=== PATIENT | male | born 1975 | race Caucasian/White ===

== ENCOUNTER 2023-01-27 10:15 | Emergency (ER) | payer OTHER, SELFPAY ==
[2023-01-27 10:25] VITALS: BP 112/65; PULSE 93; RESP 20; TEMP 36.9; O2SAT 98
--- NOTE | 2023-01-27 10:43 | ED.URI ---
HPI - URI/Sore Throat General Chief Complaint: Upper Respiratory Infection Stated Complaint: head cold/exposed to covid Time Seen by Provider: 01/27/23 10:43 Source: patient, RN notes reviewed and old records reviewed Mode of arrival: ambulatory Limitations: no limitations History of Present Illness HPI Narrative: 47-year-old male presents to [facility] with complaint of sinus congestion, sinus pain, slight cough, and chills for 2 weeks. Patient taking [id number] medications without relief MD elicited complaint: nasal congestion and sinus pain Related Data Home Medications Medication Instructions Recorded Confirmed sertraline 50 mg tablet 50 mg PO DAILY 03/19/19 01/27/23 ergocalciferol (vitamin D2) 1,250 1,250 unit PO WEEKLY 01/27/23 01/27/23 mcg (50,000 unit) capsule Allergies Allergy/AdvReac Type Severity Reaction Status Date / Time No Known Allergies Allergy Verified 01/27/23 10:32 Review of Systems Constitutional: Constitutional: Reports as per HPI and Reports chills Eyes: Eyes: Reports no additional eye complaints ENT: Reports as per HPI, Reports facial pain, Reports headache(s), Reports nasal congestion, Reports nasal discharge, Reports sinus pain and Reports sinus pressure Cardiovascular: Cardiovascular: Reports no additional cardiovascular complaints Respiratory: Respiratory: Reports as per HPI and Reports cough Neurologic: Reports system reviewed and no additional complaints, except as documented PMFSH Family History Family History Other Hypertension Social History Social History Alcohol intake: never Comments At the time of my signature, I reviewed and agree with the nursing past medical, surgical, social, and family history. There is no relevant family history pertinent to the patient complaint. Exam Const: General: cooperative, healthy appearing, no acute distress and well nourished Nutritional Appearance: well nourished Orientation/consciousness: patient oriented x3 Limitations: no limitations HENMT: Head: normal to inspection and normocephalic Ears: external ears normal, TM's normal bilaterally, mastoids normal and Abnormal EAC present Face/Nose/Sinus: Normal external nose present, No nasal polyps present, sinus tenderness and Facial tenderness on exam of face and sinuses ( maxillary sinus tenderness) Face and sinus: normal facial exam and sinus tenderness maxillary Mouth: Yes Normal oral and palatal mucosa present, Yes oropharynx normal and Yes moist mucous membranes Throat: posterior oropharynx normal, tonsils normal, uvula midline and no uvular edema Eyes: General: appearance normal, both eyes and all related structures Sclera: sclerae normal Pupils: Equal, round and reactive pupils present Resp: Effort & Inspection: normal respiratory effort, able to speak in complete sentences, no audible wheezes, no cough, no respiratory distress and no retractions Auscultation: clear to auscultation bilaterally, no crackles, no rales, no rhonchi and no wheezes Cardio: Rate: regular rate Rhythm: regular rhythm Skin: General skin exam: normal color and no rashes or lesions noted Neuro: General: patient oriented x3 Cranial nerves: Yes Equal, round and reactive pupils present Psych: Appearance: grossly normal Course Course Emergency Course: Some parts of this dictation were generated by voice recognition software and may contain typographical and/or grammatical inaccuracies. Level of Care: Express Care Visit Vital Signs Vital signs: Vital Signs Temperature 98.5 F 01/27/23 10:25 Pulse Rate 93 01/27/23 10:25 Respiratory Rate 20 01/27/23 10:25 Blood Pressure 112/65 01/27/23 10:25 Pulse Oximetry 98 01/27/23 10:25 Oxygen Delivery Room Air 01/27/23 10:25 Temperature 98.5 F 01/27/23 10:25 Pulse Rate 93 01/27/23 10:25 Respirato
== END 2023-01-27 10:50 | disposition home or self-care (01) ==
PROVIDERS: Emergency Provider Registered Nurse; PCP Family Medicine
DX: J01.90 Acute sinusitis, unspecified (principal); F32.A Depression, unspecified
CPT/HCPCS: 99203; G0463

== ENCOUNTER 2023-11-17 10:46 | Emergency (ER) | payer MEDICARE, SELFPAY ==
[2023-11-17 10:50] VITALS: BP 101/63; PULSE 88; RESP 16; TEMP 37.1; O2SAT 97
--- NOTE | 2023-11-17 11:20 | ED.URI ---
HPI - URI/Sore Throat General Chief Complaint: Upper Respiratory Infection Stated Complaint: cough/head congestion Time Seen by Provider: 11/17/23 11:21 Source: patient and RN notes reviewed Mode of arrival: ambulatory Limitations: no limitations History of Present Illness HPI Narrative: 48-year-old male presented for complaint of nasal congestion and sinus pressure, cough and mild body aches. Onset 2 days. He has taken [place] cold without relief. He smokes 1 pack per day. Denies shortness of breath, wheezing, nausea, vomiting, diarrhea, fever, or lethargy. MD elicited complaint: cough Related Data Home Medications Medication Instructions Recorded Confirmed sertraline 50 mg tablet 50 mg PO DAILY 03/19/19 01/27/23 Allergies Allergy/AdvReac Type Severity Reaction Status Date / Time No Known Allergies Allergy Verified 01/27/23 10:32 Review of Systems Review of Systems: CONSTITUTIONAL: Endorses malaise, denies chills, sweats, fever EYES: Denies visual changes, redness, or discharge ENT: Reports rhinorrhea, congestion, denies sinus pain, otalgia, sore throat CARDIOVASCULAR: Denies chest pain, palpitations, edema RESPIRATORY: Reports cough, post nasal drainage. Denies dyspnea GASTROINTESTINAL: Denies abdominal pain, nausea, vomiting, diarrhea SKIN: Denies rash MUSCULOSKELETAL: Endorses myalgia NEUROLOGIC: reports headache PMFSH Family History Family History Other Hypertension Social History Social History (Updated 11/17/23 @ 11:26 by Lilian Morgan APRN) Smoking packs per day: 1 Smoking cigarettes per day: 20.0 Smoking status: Current every day smoker Tobacco type: cigarettes Alcohol intake: never Exam Narrative: GENERAL: mildly Ill-appearing, nontoxic no acute distress. EYES: PERRLA, conjunctivae clear ENT: Mucous membranes moist. TMs pearly patel with dull light reflex bilaterally; no tragal tenderness. Oropharynx not erythematous without lesions or exudate, no drooling, no hoarseness, no trismus, uvula midline. No tripod positioning, muffled voice, soft palate or pharyngeal wall bulging NECK: Supple. No lymphadenopathy CHEST: Clear to auscultation, breath sounds equal. No wheezing, rhonchi, rales, or stridor. No respiratory distress, speaks in full sentences. HEART: Regular rate and rhythm. No murmur heard. SKIN: Warm, dry, no rash. NEURO: Alert and oriented x3. Course Course Emergency Course: Patient is aware of diagnosis, understands and agrees to treatment plan. Anticipatory guidance given. Patient agrees to follow-up as directed and is aware of reasons to seek care at the emergency department. Portions of this record may have been created with voice recognition software Level of Care: Express Care Visit Vital Signs Vital signs: Vital Signs Temperature 98.7 F 11/17/23 10:50 Pulse Rate 88 11/17/23 10:50 Respiratory Rate 16 11/17/23 10:50 Blood Pressure 101/63 11/17/23 10:50 Pulse Oximetry 97 11/17/23 10:50 Oxygen Delivery Room Air 11/17/23 10:50 Temperature 98.7 F 11/17/23 10:50 Pulse Rate 88 11/17/23 10:50 Respiratory Rate 16 11/17/23 10:50 Blood Pressure 101/63 11/17/23 10:50 Pulse Oximetry 97 11/17/23 10:50 Oxygen Delivery Room Air 11/17/23 10:50 reviewed MDM - URI/Sore Throat MDM Narrative Medical decision making narrative: Discussed physical exam findings and test results. Advised supportive measures and signs/symptoms to go to the ER. Pt is appropriate for outpt treatment and f/u. Differential Diagnosis Differential diagnosis: Likely upper respiratory infection, sinusitis, viral infection, bronchitis and influenza Lab Data Labs: Lab Results 11/17/23 Range/Units 11:44 POC Influenza A Ag Negative (Negative) POC Influenza B Ag Negative (Negative) POC SARS CoV-2 Ag Negative (Negative) Discharge Plan Discharge C
[2023-11-17 11:46] LABS: EDCOVIDSCREEN Negative (Negative); EDINFLUASCREEN Negative (Negative); EDINFLUBSCREEN Negative (Negative)
== END 2023-11-17 11:57 | disposition home or self-care (01) ==
PROVIDERS: Emergency Provider Nurse Practitioner Family; PCP Family Medicine
DX: B34.9 Viral infection, unspecified (principal); Z20.822 Contact with and (suspected) exposure to COVID-19; F17.210 Nicotine dependence, cigarettes, uncomplicated
CPT/HCPCS: 87426; 87804; 99213; G0463